=== PATIENT | female | born 1990 | race Caucasian/White ===

== ENCOUNTER 2020-06-26 00:11 | Inpatient (IN) ==
[2020-06-26] MEDS ORDERED: OXYTOCIN 30 UNITS/500 ML BAG IV PRN ×3 (00:59→15:56)
[2020-06-26] MEDS: LACTATED RINGER'S 1,000 ML IV PRN ×4 (01:00→13:56)
[2020-06-26] MEDS ORDERED: diphenhydrAMINE 50 MG/ML VIAL IV PRN (01:02)
[2020-06-26] MEDS ORDERED: NALOXONE HCL 1 MG in SODIUM CHLORIDE 0.9% 1000ML 1,000 ML IV PRN (01:02)
[2020-06-26] MEDS ORDERED: ePHEDrine sulfate 50 MG/ML AMP IV PRN (01:02)
[2020-06-26] MEDS ORDERED: ONDANSETRON INJ 2 MG/ML 2 ML VIAL IV PRN (01:02)
[2020-06-26] MEDS ORDERED: NALOXONE HCL 0.4 MG/1 ML VIAL/CARP IV PRN (01:02)
[2020-06-26] MEDS ORDERED: PROMETHAZINE HCL 25 MG in SODIUM CHLORIDE 0.9% 50 ML IV PRN (01:02)
--- NOTE | 2020-06-26 01:02 | Anesthesiology Consultation ---
Date of Service June 26, 2020 Assessment & Plan ASA ASA2 Proposed Anesthesia Anesthesia Type: Labor Epidural Risk / Benefits Reviewed With: PT / POA / Parent / Guardian, Accepts Plan and Informed Consent Obtained History Height/Weight Height: 5 ft 8 in Weight: 63.503 kg Allergies Allergy/AdvReac Type Severity Reaction Status Date / Time No Known Allergies Allergy Verified 06/13/20 14:00 Medications Home Medications Medication Instructions Recorded Confirmed Last Taken prenat.vits,leighann,ccg-[id number] 1 tab PO DAILY 11/10/19 06/13/20 Unknown Active Medications Generic Name Dose Route Start Last Admin Trade Name Freq PRN Reason Stop Dose Admin Lactated Ringer's 1,000 mls @ 125 mls/hr 06/26/20 00:59 06/26/20 01:00 Lr IV 06/28/20 00:58 125 mls/hr .Q8H PRN Administration L&D Protocol Protocol Ropivacaine 100 ml 06/26/20 01:02 06/26/20 02:00 Fentanyl 2mcg/Ml Ropivacaine 1.25mg/Ml 100 Ml Bag EPI 06/27/20 01:01 100 ml PRN PRN Administration Pain R/T Labor Protocol Exercise / Class Metabolic Activity II 4-5 Yardwork/Stairs/Walk up hill Past Family History Family History Father Colorectal cancer Mother Diabetes Other Dyslipidemia Hypertension Denies family history of Ovarian cancer Prostate cancer Myocardial infarction Breast cancer Past Surgical History Surgical History [place] teeth extracted Past Anesthesia History No Hx of Anesthesia Complications and No Family Hx of Anesthesia Complications History of PONV No Hx of PONV and No Hx of Motion Sickness Social History Smoking Status: Never smoker Hx Alcohol Use: Yes Hx Substance Use: No Review of Systems denies fever/cough/ colds/ chest pain/ SOB/ ROBERTO denies ROBERTO Physical Exam Vital Signs Last Vital Signs Pulse 85 06/26/20 02:05 Resp 18 06/26/20 00:25 BP 112/67 06/26/20 02:05 Pulse Ox 99 06/26/20 01:46 ENMT Mouth: no TMJ abnormality and no dentition abnormality Thyromental Distance: > or= 3.5 Finger Breadths Mallampati Class: II Neck neck extension not limited Respiratory normal respiratory effort; no respiratory distress Auscultation: lungs clear to auscultation bilaterally Cardiovascular Rate/Rhythm: regular rate and regular rhythm Neurologic moves all extremities Psychiatric Orientation: alert and oriented x 3 Testing Laboratory Results 06/26/20 01:40
--- NOTE | 2020-06-26 01:05 | History & Physical Report ---
Date of Service June 26, 2020 Assessment & Plan (1) Encounter for supervision in primigravida, antepartum: Admit to L&D. OK for epidural when she desires. Labs, EFM/toco, IV. Covid swab per protocol. History of Present Illness Chief Complaint: labor Primary Care Provider: NO PCP 30yo @ 39 6/7, spontaneous labor. Ctx started 9pm last night. No ROM, no vaginal bleeding. + movement. Allergies Allergy/AdvReac Type Severity Reaction Status Date / Time No Known Allergies Allergy Verified 06/13/20 14:00 Home Medications Medication Instructions Recorded Confirmed Type prenat.vits,leihgann,man-qees-hvbtp 1 tab PO DAILY 11/10/19 06/13/20 History Patient History Surgical History [place] teeth extracted Family History Father Colorectal cancer Mother Diabetes Other Dyslipidemia Hypertension Denies family history of Ovarian cancer Prostate cancer Myocardial infarction Breast cancer Social History (Updated 11/10/19 @ 13:18 by Michelle Sinha) Smoking Status: Never smoker Second Hand Exposure: No; Hx Alcohol Use: Yes Hx Substance Use: No Preferred Language: Chilean Communication Ability: Effective marital status: marital status details: Josef (30) [phone] Current Living Situation: Spouse Current Living Situation Comment: lives with spouse, 1 dog. 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 Feels Safe at Home: Yes Safety Concerns: Feels Safe At This Time Childhood Exposure to Second-Hand Smoke: No caffeine: No Dental Care, Regularly: Yes Physical Activity Frequency: 3-4 Times per Week Seatbelt Use: always Sunscreen Use: Yes Review of Systems All systems reviewed & are unremarkable except as noted in HPI & below Physical Exam Physical Exam: SVE 3/90/0 FHT Cat 1 [place] Q 2 Constitutional: WD/WN, vitals as above Respiratory: normal respiratory effort, lungs clear to auscultation no respiratory distress Cardiovascular: Rate/Rhythm: regular rate and regular rhythm Gastrointestinal (Abdomen): Inspection/Auscultation: abdomen normal to inspection Percussion/Palpation: abdomen soft; abdomen nontender Gravid. No s/s chorio or abruption. Skin: no rashes, warm and dry Psychiatric: A+Ox3, euthymic affect Results & Data ([facility]) Vital Signs (Past 12 Hours) Vital Signs Pulse Resp BP 06/26/20 00:25 18 06/26/20 00:24 93 H 123/77 Coding Level of Care Code None Diagnoses Encounter for supervision in primigravida, antepartum Z34.00
[2020-06-26] MEDS ORDERED: BUPIVACAINE 0.25% 30 ML VIAL ONE (01:19)
[2020-06-26] MEDS ORDERED: SODIUM CHLORIDE 0.9% INJ 10 ML VIAL ONE (01:19)
[2020-06-26] MEDS ORDERED: fentaNYL citrate 100 MCG/2 ML VIAL ONE (01:19)
[2020-06-26] MEDS ORDERED: ePHEDrine sulfate 50 MG/ML AMP ONE (01:19)
[2020-06-26] MEDS ORDERED: fentaNYL 2MCG/ML ROPIVACAINE 1.25MG/ML 100 ML BAG EPI ONE (01:20)
[2020-06-26 01:53] LABS: Hematocrit (blood only) 38.6 % (37-47); Hemoglobin 13.2 g/dL (12.0-16.0); Mean Corpuscular Hemoglobin 29.7 pg (25-34); Mean Corpuscular Hgb Conc 34.2 g/dL (32-36); Mean Corpuscular Volume 86.7 fL (80-100); Mean Platelet Volume 9.9 fL (7.4-10.4); Platelet Count 187 K/uL (130-400); RDW Standard Deviation 41.7 fL (36.4-46.3); Red Blood Count 4.45 M/uL (4.2-5.4); White Blood Count 11.93 K/uL (4.8-10.8)
[2020-06-26] MEDS: fentaNYL 2MCG/ML ROPIVACAINE 1.25MG/ML 100 ML BAG EPI PRN ×3 (02:00→10:28)
--- NOTE | 2020-06-26 08:12 | Labor Progress Brief Note ---
Date of Service June 26, 2020 Subjective Comfortable with epidural. FHT Cat 1 [place] Q 2-4 min Is willing for pitocin if needed. Continue labor. Assessment & Plan Admission and Anticipated Discharge Date Admission Date: June 26, 2020 Results & Data ([facility]) Vital Signs (Past 12 Hours) Vital Signs Temp Pulse Resp BP Pulse Ox 06/26/20 08:07 94 H 123/77 06/26/20 07:51 96 H 125/67 06/26/20 07:37 93 H 121/72 06/26/20 07:22 87 113/75 06/26/20 07:06 97 H 115/71 06/26/20 07:05 37.1 C 16 06/26/20 06:51 101 H 118/69 06/26/20 06:37 96 H 128/74 06/26/20 06:21 96 H 114/73 06/26/20 06:07 101 H 121/76 06/26/20 05:51 88 125/70 06/26/20 05:38 88 123/69 06/26/20 05:21 89 118/74 06/26/20 05:14 18 06/26/20 05:07 116 H 121/78 06/26/20 04:52 91 H 129/72 06/26/20 04:37 95 H 124/76 06/26/20 04:21 93 H 124/73 06/26/20 04:07 93 H 122/73 06/26/20 03:53 90 121/69 06/26/20 03:38 87 123/75 06/26/20 03:30 37.1 C 18 06/26/20 03:22 90 120/69 06/26/20 03:15 18 06/26/20 03:07 84 125/68 06/26/20 03:00 18 06/26/20 02:52 79 126/67 06/26/20 02:45 18 06/26/20 02:37 90 121/69 06/26/20 02:30 18 06/26/20 02:22 86 127/76 06/26/20 02:15 18 06/26/20 02:05 85 112/67 06/26/20 02:03 86 115/65 06/26/20 02:01 91 H 115/65 06/26/20 02:00 18 06/26/20 01:59 94 H 109/64 06/26/20 01:57 96 H 116/65 06/26/20 01:55 103 H 114/77 06/26/20 01:46 101 H 99 06/26/20 01:45 18 06/26/20 01:25 18 06/26/20 01:20 18 06/26/20 01:15 18 06/26/20 01:10 18 06/26/20 01:05 18 06/26/20 01:00 06/26/20 00:26 37.1 C 06/26/20 00:25 18 06/26/20 00:24 93 H 123/77 Coding Level of Care Code None
--- NOTE | 2020-06-26 08:54 | Labor Progress Brief Note ---
Date of Service June 26, 2020 Subjective comfortable Assessment & Plan (1) Normal labor: Admission and Anticipated Discharge Date Admission Date: June 26, 2020 plan to augment with arom and pit as needed. fetus category one. anticipate . Physical Exam Constitutional: WD/WN, vitals as above Psychiatric: A+Ox3, euthymic affect Genitourinary: /-2 toco--q2-5min efm--130s with mod variability, accels to 150s, no decels arom--clear Results & Data ([facility]) Vital Signs (Past 12 Hours) Vital Signs Temp Pulse Resp BP Pulse Ox 06/26/20 08:51 114/73 06/26/20 08:46 36.6 C 16 06/26/20 08:36 82 114/66 06/26/20 08:21 81 114/64 06/26/20 08:07 94 H 123/77 06/26/20 07:51 96 H 125/67 06/26/20 07:37 93 H 121/72 06/26/20 07:22 87 113/75 06/26/20 07:06 97 H 115/71 06/26/20 07:05 37.1 C 16 06/26/20 06:51 101 H 118/69 06/26/20 06:37 96 H 128/74 06/26/20 06:21 96 H 114/73 06/26/20 06:07 101 H 121/76 06/26/20 05:51 88 125/70 06/26/20 05:38 88 123/69 06/26/20 05:21 89 118/74 06/26/20 05:14 18 06/26/20 05:07 116 H 121/78 06/26/20 04:52 91 H 129/72 06/26/20 04:37 95 H 124/76 06/26/20 04:21 93 H 124/73 06/26/20 04:07 93 H 122/73 06/26/20 03:53 90 121/69 06/26/20 03:38 87 123/75 06/26/20 03:30 37.1 C 18 06/26/20 03:22 90 120/69 06/26/20 03:15 18 06/26/20 03:07 84 125/68 06/26/20 03:00 18 06/26/20 02:52 79 126/67 06/26/20 02:45 18 06/26/20 02:37 90 121/69 06/26/20 02:30 18 06/26/20 02:22 86 127/76 06/26/20 02:15 18 06/26/20 02:05 85 112/67 06/26/20 02:03 86 115/65 06/26/20 02:01 91 H 115/65 06/26/20 02:00 18 06/26/20 01:59 94 H 109/64 06/26/20 01:57 96 H 116/65 06/26/20 01:55 103 H 114/77 06/26/20 01:46 101 H 99 06/26/20 01:45 18 06/26/20 01:25 18 06/26/20 01:20 18 06/26/20 01:15 18 06/26/20 01:10 18 06/26/20 01:05 18 06/26/20 01:00 06/26/20 00:26 37.1 C 06/26/20 00:25 18 06/26/20 00:24 93 H 123/77 Coding Level of Care Code None Diagnoses Normal labor O80; Z37.9
--- NOTE | 2020-06-26 10:55 | Labor Progress Brief Note ---
Date of Service June 26, 2020 Subjective patient got very painful and had to increase settings on epidural. then had episode of tachysystole and had a resultant FHR deceleration to the 70-80. This was resolved with pit off, turning patient, oxygen on. FHT prior had been 120s with mod varibility, early decels with some contractions. Lasted for about 5 minute. cx 7/100/-1. Terb at bedside in case. Fetus has recovered. Will hold pit for now. More comfortable after epidural changes. Will continue to watch closely. Baseline now 120 Assessment & Plan Admission and Anticipated Discharge Date Admission Date: June 26, 2020 Results & Data ([facility]) Vital Signs (Past 12 Hours) Vital Signs Temp Pulse Resp BP Pulse Ox 06/26/20 10:36 69 06/26/20 10:22 74 118/62 06/26/20 10:06 77 118/67 06/26/20 10:00 16 06/26/20 09:53 81 131/69 06/26/20 09:36 93 H 126/74 06/26/20 09:30 20 06/26/20 09:23 89 130/72 06/26/20 09:06 83 111/69 06/26/20 09:00 16 06/26/20 08:51 84 114/73 06/26/20 08:46 36.6 C 16 06/26/20 08:36 82 114/66 06/26/20 08:30 16 06/26/20 08:21 81 114/64 06/26/20 08:07 94 H 123/77 06/26/20 08:00 18 06/26/20 07:51 96 H 125/67 06/26/20 07:37 93 H 121/72 06/26/20 07:30 16 06/26/20 07:22 87 113/75 06/26/20 07:06 97 H 115/71 06/26/20 07:05 37.1 C 16 06/26/20 06:51 101 H 118/69 06/26/20 06:37 96 H 128/74 06/26/20 06:21 96 H 114/73 06/26/20 06:07 101 H 121/76 06/26/20 05:51 88 125/70 06/26/20 05:38 88 123/69 06/26/20 05:21 89 118/74 06/26/20 05:14 18 06/26/20 05:07 116 H 121/78 06/26/20 04:52 91 H 129/72 06/26/20 04:37 95 H 124/76 06/26/20 04:21 93 H 124/73 06/26/20 04:07 93 H 122/73 06/26/20 03:53 90 121/69 06/26/20 03:38 87 123/75 06/26/20 03:30 37.1 C 18 06/26/20 03:22 90 120/69 06/26/20 03:15 18 06/26/20 03:07 84 125/68 06/26/20 03:00 18 06/26/20 02:52 79 126/67 06/26/20 02:45 18 06/26/20 02:37 90 121/69 06/26/20 02:30 18 06/26/20 02:22 86 127/76 06/26/20 02:15 18 06/26/20 02:05 85 112/67 06/26/20 02:03 86 115/65 06/26/20 02:01 91 H 115/65 06/26/20 02:00 18 06/26/20 01:59 94 H 109/64 06/26/20 01:57 96 H 116/65 06/26/20 01:55 103 H 114/77 06/26/20 01:46 101 H 99 06/26/20 01:45 18 06/26/20 01:25 18 06/26/20 01:20 18 06/26/20 01:15 18 06/26/20 01:10 18 06/26/20 01:05 18 06/26/20 01:00 18 06/26/20 00:26 37.1 C 06/26/20 00:25 18 06/26/20 00:24 93 H 123/77 Coding Level of Care Code None
[2020-06-26] MEDS ORDERED: NURSING L&D Epidural Breakthrough Pain Update ONE (10:58)
--- NOTE | 2020-06-26 11:54 | Labor Progress Brief Note ---
Date of Service June 26, 2020 Subjective comfortable Assessment & Plan (1) Normal labor: Admission and Anticipated Discharge Date Admission Date: June 26, 2020 continue current management. Fetus reassuring. anticipate . Physical Exam Constitutional: WD/WN, vitals as above Psychiatric: A+Ox3, euthymic affect Genitourinary: cx--9/100/0 toco--q2-4min efm--120s with mod variability, occasional early, +scalp stim Results & Data ([facility]) Vital Signs (Past 12 Hours) Vital Signs Temp Pulse Resp BP Pulse Ox 06/26/20 11:37 75 120/72 06/26/20 11:30 16 06/26/20 11:22 74 136/82 06/26/20 11:08 62 123/78 06/26/20 11:02 36.9 C 16 06/26/20 11:00 20 06/26/20 10:52 66 135/87 06/26/20 10:36 69 06/26/20 10:30 18 06/26/20 10:22 74 118/62 06/26/20 10:06 77 118/67 06/26/20 10:00 16 06/26/20 09:53 81 131/69 06/26/20 09:36 93 H 126/74 06/26/20 09:30 20 06/26/20 09:23 89 130/72 06/26/20 09:06 83 111/69 06/26/20 09:00 16 06/26/20 08:51 84 114/73 06/26/20 08:46 36.6 C 16 06/26/20 08:36 82 114/66 06/26/20 08:30 16 06/26/20 08:21 81 114/64 06/26/20 08:07 94 H 123/77 06/26/20 08:00 18 06/26/20 07:51 96 H 125/67 06/26/20 07:37 93 H 121/72 06/26/20 07:30 16 06/26/20 07:22 87 113/75 06/26/20 07:06 97 H 115/71 06/26/20 07:05 37.1 C 16 06/26/20 06:51 101 H 118/69 06/26/20 06:37 96 H 128/74 06/26/20 06:21 96 H 114/73 06/26/20 06:07 101 H 121/76 06/26/20 05:51 88 125/70 06/26/20 05:38 88 123/69 06/26/20 05:21 89 118/74 06/26/20 05:14 18 06/26/20 05:07 116 H 121/78 06/26/20 04:52 91 H 129/72 06/26/20 04:37 95 H 124/76 06/26/20 04:21 93 H 124/73 06/26/20 04:07 93 H 122/73 06/26/20 03:53 90 121/69 06/26/20 03:38 87 123/75 06/26/20 03:30 37.1 C 18 06/26/20 03:22 90 120/69 06/26/20 03:15 18 06/26/20 03:07 84 125/68 06/26/20 03:00 18 06/26/20 02:52 79 126/67 06/26/20 02:45 18 06/26/20 02:37 90 121/69 06/26/20 02:30 18 06/26/20 02:22 86 127/76 06/26/20 02:15 18 06/26/20 02:05 85 112/67 06/26/20 02:03 86 115/65 06/26/20 02:01 91 H 115/65 06/26/20 02:00 18 06/26/20 01:59 94 H 109/64 06/26/20 01:57 96 H 116/65 06/26/20 01:55 103 H 114/77 06/26/20 01:46 101 H 99 06/26/20 01:45 18 06/26/20 01:25 18 06/26/20 01:20 18 06/26/20 01:15 18 06/26/20 01:10 18 06/26/20 01:05 18 06/26/20 01:00 18 06/26/20 00:26 37.1 C 06/26/20 00:25 18 06/26/20 00:24 93 H 123/77 Coding Level of Care Code None Diagnoses Normal labor O80; Z37.9
[2020-06-26] MEDS ORDERED: OXYTOCIN 10 UNITS/ML VIAL ONE (14:34)
[2020-06-26] MEDS ORDERED: oxyCODONE/ACETAMINOPHEN 5mg/325mg TAB PO PRN (15:53)
[2020-06-26] MEDS ORDERED: ACETAMINOPHEN 325 MG TAB PO PRN (15:53)
--- NOTE | 2020-06-26 15:55 | Anesthesia Procedure Note ---
Date of Service June 26, 2020 Anesthesia Post Epidural Note Vital Signs Vital Signs: Temp Pulse Resp BP Pulse Ox 36.4 C L 65 16 109/62 100 06/26/20 15:04 06/26/20 15:50 06/26/20 14:00 06/26/20 15:50 06/26/20 14:43 Pain Intensity Bilateral Abdomen: Pain Intensity: 7 Notes Mental Status: alert / awake / arousable and participated in evaluation Nausea / Vomiting: adequately controlled Pain: adequately controlled Airway Patency, RR, SpO2: stable & adequate BP & HR: stable & adequate Hydration State: stable & adequate Neuraxial Anesthesia: was administered and sensory block is resolving Anesthetic Complications: no major complications apparent Epidural: Removed without complications and With tip intact
[2020-06-26] MEDS ORDERED: BENZOCAINE 20% AER SPR 82.5 GM CAN EXT PRN (15:56)
[2020-06-26] MEDS ORDERED: DIPHTHERIA/TETANUS/PERTUSSIS 0.5 ML SYR/VIAL IM ONE (15:56)
[2020-06-26] MEDS ORDERED: SUPERCREAM 0.870% 15 GM JAR EXT PRN (15:56)
[2020-06-26] MEDS ORDERED: HYDROCORTISONE ACETATE 25 MG SUPP PR PRN (15:56)
[2020-06-26] MEDS ORDERED: bisacodyL 10 MG SUPP PR PRN (15:56)
--- NOTE | 2020-06-26 15:56 | Delivery Summary ---
Vaginal Delivery Summary Date of Service June 26, 2020 Pre-operative Diagnosis: at39 6/7 weeks active labor Post-operative Diagnosis: same Procedure: epidural arom pitocin augmentation second degree laceration and repair EBL: 400cc Anesthesia: epidural Procedure: The patient pushed to deliver a viable male infant in omi position. The nose and mouth were bulb suctioned on the perineum and the rest of the infant was then delivered without difficulty. The baby was vigorous. The nose and mouth were again bulb suctioned and the infant was placed in the maternal abdomen for drying and attention. Cord was clamped and cut at one minute of life. Cord blood and segment obtained. Placenta delivered spontaneous, intact with a three vessel cord. Cervix/sulci/rectum were intact. A second degree perineal laceration was repaired in the normal standard fashion. Hemostasis obtained with dilute pitocin, IM pitocin and fundal massage. Apgars were 8/9. Mother and baby doing well at the end of the delivery. Vaginal Delivery Summary and 2nd Degree LAC [facility] [place] Vaginal Delivery Charge Delivery Type Details: and 2nd Degree LAC
[2020-06-26] MEDS: IBUPROFEN 600 MG TAB PO PRN ×2 (17:36→21:06)
[2020-06-26] MEDS: DOCUSATE SODIUM 100 MG CAP PO SCH (21:06)
[2020-06-27] MEDS: IBUPROFEN 600 MG TAB PO PRN ×4 (01:12→21:39)
[2020-06-27 06:27] LABS: Hematocrit (blood only) 30.5 % (37-47); Hemoglobin 10.2 g/dL (12.0-16.0)
--- NOTE | 2020-06-27 06:43 | Obstetrical Progress Note ---
Date of Service <Jesse Amaya MD - Last Filed: 06/27/20 07:31> June 27, 2020 Assessment & Plan <Jesse Amaya MD - Last Filed: 06/27/20 07:31> (1) state: 30 y/o 39w6d who is s/p on 06/26, PPD1. No complications. O pos. RI. - Meeting PP milestones - , ambulating, eating, voiding - Pain controlled - tentative dispo home today. will review d/c instructions. 6 wk f/u Subjective <Jesse Amaya MD - Last Filed: 06/27/20 07:31> Ambulation: ambulating normally Voiding: no voiding problems Passing Gas:: Yes Diet Tolerance:: regular diet Lochia:: Moderate Feeding Type:: breast feeding Current Pain Level(1-10): 2 Doing well. Patient prefers home today. Review of Systems Denies fever, chills, sweats Denies shortness of breath, chest pain, palpitations. Denies breast pain. Denies dysuria. Denies headache or changes in vision. Denies nausea/vomiting. Denies numbness, tingling, weakness. Denies calf pain. Mood is ok. Physical Exam <Jesse Amaya MD - Last Filed: 06/27/20 07:31> General: Alert, oriented. No acute distress. Cardiac: Regular rate and rhythm, no murmurs/rubs/gallops. Respiratory: Clear to auscultation bilaterally, no wheezes/rales/rhonchi. No respiratory distress. Abdomen: , soft, nontender. Uterus: Uterine fundus firm, 0.5cm below umbilicus. Lower Extremities: No lower extremity edema or swelling. No deep calf pain. Norman's negative bilaterally. Results & Data ([facility]) <Jesse Amaya MD - Last Filed: 06/27/20 07:31> Vital Signs (Past 12 Hours) Vital Signs Temp Pulse Resp BP Pulse Ox 06/27/20 03:20 36.6 C 87 18 113/78 06/26/20 23:45 36.6 C 90 18 103/68 98 06/26/20 19:35 36.7 C 83 16 107/73 Medications Administered <Mirta Patel MD, FACOG - Last Filed: 06/27/20 07:46> Co-Signing Physician Notes Resident Physician Supervision Note: I interviewed and examined the patient. Discussed with Dr. Amaya and agree with findings and plan as documented in the note. Any exceptions or clarifications are listed here: Doing well. PPD #1 routine. Given she is a primip and first baby, recommend staying until tomorrow just to make sure all is going well. She is agreeable. Plan d/c in am. Documented By: Mirta Patel MD, FACOG
[2020-06-27] MEDS: PRENATAL VITAMIN 1 TAB PO SCH (08:59)
[2020-06-27] MEDS: DOCUSATE SODIUM 100 MG CAP PO SCH ×2 (08:59→20:31)
[2020-06-27] MEDS ORDERED: bisacodyL 5 MG TABEC PO SCH (20:00)
--- NOTE | 2020-06-28 06:08 | Obstetrical Progress Note ---
Date of Service <Jesse Amaya MD - Last Filed: 06/28/20 07:18> June 28, 2020 Assessment & Plan <Jesse Amaya MD - Last Filed: 06/28/20 07:18> (1) state: 30 y/o 39w6d who is s/p on 06/26, PPD2. No complications. O pos. RI. - Meeting PP milestones - , ambulating, eating, voiding - Pain controlled - dispo home today, reviewed d/c instructions - 6 wk f/u Subjective <Jesse Amaya MD - Last Filed: 06/28/20 07:18> Ambulation: ambulating normally Voiding: no voiding problems Passing Gas:: Yes Diet Tolerance:: regular diet Lochia:: Small Feeding Type:: breast feeding Current Pain Level(1-10): 2 Feeling well. No complaints. Feels ready for home. Review of Systems Denies fever, chills, sweats Denies shortness of breath, chest pain, palpitations. Denies breast pain. Denies dysuria. Denies headache or changes in vision. Denies nausea/vomiting. Denies numbness, tingling, weakness. Denies calf pain. Mood is good. Physical Exam <Jesse Amaya MD - Last Filed: 06/28/20 07:18> General: Alert, oriented. No acute distress. Cardiac: Regular rate and rhythm, no murmurs/rubs/gallops. Respiratory: Clear to auscultation bilaterally, no wheezes/rales/rhonchi. No respiratory distress. Abdomen: , soft Uterus: Uterine fundus firm, 2cm below umbilicus. Lower Extremities: No lower extremity edema or swelling. No deep calf pain. Norman's negative bilaterally. Results & Data ([facility]) <Jesse Amaya MD - Last Filed: 06/28/20 07:18> Vital Signs (Past 12 Hours) Vital Signs Temp Pulse Resp BP Pulse Ox 06/27/20 23:35 37.2 C 68 16 100/66 97 06/27/20 20:20 36.8 C 76 16 100/65 98 Medications Administered <Estrella Mahoney MD, FACOG - Last Filed: 06/28/20 07:19> Co-Signing Physician Notes Resident Physician Supervision Note: I interviewed and examined the patient. Discussed with Dr. Amaya and agree with findings and plan as documented in the note. Any exceptions or clarifications are listed here: pt doing well, ready to go home. instructions reviewed. f/u 6wks. Documented By: Estrella Mahoney MD, FACOG Resident Activity Tracking <Jesse Amaya MD - Last Filed: 06/28/20 07:18> Resident Involvement: Resident Care Provided Care Provided: OB Delivery
[2020-06-28] MEDS: IBUPROFEN 600 MG TAB PO PRN (06:44)
[2020-06-28] MEDS: PRENATAL VITAMIN 1 TAB PO SCH (08:11)
[2020-06-28] MEDS: DOCUSATE SODIUM 100 MG CAP PO SCH (08:11)
== END 2020-06-28 11:00 | disposition home or self-care (01) | DRG 807 ==
LOC: OPB 00:11 → 4S1 00:19 → 4S2 18:26

== ENCOUNTER 2023-09-29 21:33 | Inpatient (IN) ==
[2023-09-30] MEDS ORDERED: LIDOCAINE 1% LOCAL 20 ML VIAL INFIL PRN (00:27)
[2023-09-30] MEDS ORDERED: Patient's ALLERGY Info needs ENTERED STA (00:30)
[2023-09-30] MEDS: LACTATED RINGER'S 1,000 ML IV PRN (00:45)
[2023-09-30 01:03] LABS: Hemoglobin 12.3 g/dl (12.0-16.0); Mean Corpuscular Hemoglobin 27.8 pg (25.0-34.0); Mean Corpuscular Hgb Conc 33.2 g/dL (32.0-36.0); Mean Corpuscular Volume 83.5 fL (80.0-100.0); Mean Platelet Volume 10.7 fL (9.4-12.4); Platelet Count 168 K/uL (130-400); RDW Coefficient of Variation 13.2 % (11.5-14.5); RDW Standard Deviation 40.2 fL (36.4-46.3); Red Blood Count 4.43 M/uL (4.20-5.40); White Blood Count 11.05 K/ul (4.8-10.8)
[2023-09-30] MEDS: BUPIVACAINE 0.25% PF 30 ML VIAL ONE (01:30)
[2023-09-30] MEDS: fentANYL 2 MCG/ML BUPIVacaine 0.125%-NSS 100ML BAG ONE (01:30)
[2023-09-30] MEDS: LIDOCAINE 2%/EPINEPHRINE 1:200,000 20 ML PF ONE (01:30)
[2023-09-30] MEDS ORDERED: diphenhydrAMINE 50 MG/ML VIAL IV PRN (01:42)
[2023-09-30] MEDS ORDERED: NALBUPHINE HCL 5 MG in SYRINGE 0 ML IV PRN (01:42)
[2023-09-30] MEDS ORDERED: ePHEDrine sulfate 50 MG/ML AMP IV PRN (01:42)
[2023-09-30] MEDS ORDERED: SODIUM CHLORIDE 0.9% PF INJ 10 ML VIAL EPI PRN (01:42)
[2023-09-30] MEDS ORDERED: fentaNYL citrate PF 100 MCG/2 ML VIAL EPI PRN (01:42)
[2023-09-30] MEDS ORDERED: fentANYL 2 MCG/ML BUPIVacaine 0.125%-NSS 100ML BAG EPI PRN (01:42)
[2023-09-30] MEDS ORDERED: LIDOCAINE 2% MPF LOCAL 5 ML VIAL EPI PRN (01:42)
[2023-09-30] MEDS ORDERED: NALOXONE HCL 1 MG in SODIUM CHLORIDE 0.9% 1,000 ML IV PRN (01:42)
[2023-09-30] MEDS ORDERED: BUPIVACAINE 0.25% PF 30 ML VIAL EPI PRN (01:42)
[2023-09-30] MEDS ORDERED: NALOXONE HCL 0.4 MG/1 ML VIAL/CARP IV PRN (01:42)
[2023-09-30] MEDS ORDERED: ROPIVACAINE 0.5% PF 5 MG/ML 20 ML VIAL EPI PRN (01:42)
--- NOTE | 2023-09-30 01:44 | Anesthesiology Consultation ---
Date of Service September 30, 2023 Assessment & Plan Chart Review Chart Review: Acceptable Risk for Surgery Consults Requested none History Height/Weight Height: 5 ft 7 in Weight: 63.503 kg Allergies Allergy/AdvReac Type Severity Reaction Status Date / Time No Known Allergies Allergy Unverified 09/30/23 01:33 Social History Smoking Status: Never smoker Hx Alcohol Use: No Hx Substance Use: No Physical Exam Vital Signs Last Vital Signs Temp 36.5 C 09/29/23 21:50 Pulse 87 09/30/23 01:41 Resp 18 09/29/23 21:50 BP 140/73 09/30/23 01:41 Pulse Ox 100 09/30/23 01:41 Testing Laboratory Results 09/30/23 00:35
[2023-09-30] MEDS ORDERED: OXYTOCIN 30 UNITS/NSS 30 UNITS/500 ML BAG IV PRN (01:45)
[2023-09-30] MEDS: fentaNYL citrate PF 100 MCG/2 ML VIAL ONE (03:17)
[2023-09-30] MEDS: SODIUM CHLORIDE 0.9% PF INJ 10 ML VIAL ONE (03:17)
[2023-09-30] MEDS: ePHEDrine sulfate 50 MG/ML AMP ONE (03:17)
[2023-09-30] MEDS: BUPIVACAINE 0.25% PF 30 ML VIAL EPI STA (03:17)
[2023-09-30] MEDS: fentaNYL citrate PF 100 MCG/2 ML VIAL EPI STA (03:17)
[2023-09-30] MEDS: LIDOCAINE 2%/EPINEPHRINE 1:200,000 20 ML PF EPI STA (03:18)
[2023-09-30] MEDS: SODIUM CHLORIDE 0.9% PF INJ 10 ML VIAL EPI STA (03:18)
[2023-09-30] MEDS: OXYTOCIN 30 UNITS/NSS 30 UNITS/500 ML BAG IV PRN (06:49)
--- NOTE | 2023-09-30 06:56 | Delivery Summary ---
Vaginal Delivery Summary Date of Service September 30, 2023 Vaginal Delivery Summary DIAGNOSES: 1. [place] intrauterine at 39w6d gestation. 2. Spontaneous onset of labor. 3. Group B Streptococcus Neg. PROCEDURE: Spontaneous vaginal delivery and repair of 2nd degree laceration. SURGEON: Thamina Weller MD. ADMINISTRATOR: None. QUANTITATIVE BLOOD LOSS: 202 mL. COMPLICATIONS: None. PLACENTA: Spontaneous and intact with a 3-vessel cord. DISPOSITION: Stable to labor and delivery. DESCRIPTION: The patient pushed well and brought the head to in DOA position. The infant's head was allowed to deliver with contraction force and no further active pushing, with the perineum protected during this time. There was 1 loop of nuchal cord. The shoulders and body delivered without any difficulty, and the infant was placed on the maternal abdomen. It was vigorous and moving all extremities, and making respiratory efforts. The cord was doubly clamped by the MD and then cut by the FOB. The placenta delivered spontaneously and was noted to be intact and with a 3VC. The cervix, vagina and perineum were examined and were found to have a second degree laceration which was repaired in the usual manner using vicryl suture. The fundus was firm and lochia minimal immediately after delivery. [facility] Vaginal Delivery Charge Vaginal Delivery Codes: 18987 global code for the antepartum, delivery, and post-
[2023-09-30] MEDS ORDERED: oxyCODONE/ACETAMINOPHEN 5mg/325mg TAB PO PRN (07:05)
[2023-09-30] MEDS ORDERED: HYDROCORTISONE ACETATE 25 MG SUPP PR PRN (07:05)
[2023-09-30] MEDS ORDERED: bisacodyL 10 MG SUPP PR PRN (07:05)
[2023-09-30] MEDS: DIPHTHER/TETAN/PERTUS Vaccine (Tdap, Adol/Adult) 0.5mL IM ONE (07:19)
--- NOTE | 2023-09-30 07:34 | Anesthesia Procedure Note ---
Date of Service September 30, 2023 Anesthesia Post Epidural Note Vital Signs Vital Signs: Temp Pulse Resp BP Pulse Ox 36.8 C 54 L 18 151/83 H 98 09/30/23 04:30 09/30/23 07:31 09/30/23 06:55 09/30/23 07:24 09/30/23 07:31 Notes Mental Status: alert / awake / arousable Nausea / Vomiting: adequately controlled Pain: adequately controlled Airway Patency, RR, SpO2: stable & adequate BP & HR: stable & adequate Hydration State: stable & adequate Neuraxial Anesthesia: was administered and sensory block is resolving Anesthetic Complications: no major complications apparent and Pt Satisfied with anesthetic care Epidural: Removed without complications and With tip intact
[2023-09-30] MEDS: BENZOCAINE 20% SPRY 85 APPLN/85 GM CAN EXT PRN (08:25)
[2023-09-30] MEDS: PRENATAL VITAMIN 1 TAB PO SCH (08:26)
[2023-09-30] MEDS: DOCUSATE SODIUM 100 MG CAP PO SCH (08:26)
[2023-09-30] MEDS: ACETAMINOPHEN 325 MG TAB PO PRN (12:53)
[2023-09-30] MEDS: IBUPROFEN 600 MG TAB PO PRN (18:19)
[2023-10-01 00:15] VITALS: RESP 16
--- NOTE | 2023-10-01 06:37 | Obstetrical Progress Note ---
Date of Service October 01, 2023 Assessment & Plan (1) care and examination: Plan PPD1: Stable, continue routine care, continue OOB and ambulation, diet as tolerated Ready for d/c today Rh+, gbs neg, ri Admission and Anticipated Discharge Date Admission Date: September 30, 2023 Supervising Physician Co-Signing Physician Notes Resident Physician Supervision Note: I was present with Dr. Musa during the history and exam. I discussed the case with the resident and agree with the findings and plan as documented in the note. Any exceptions or clarifications are listed here: stable doing well, eating voiding, ambulating, no bleeding or pain concerns. , ri, rh pos. af vss, abd soft ff 2 down nt, ext nt calves. ppd#1 s/p , ready to go home, instructions given and reviewed. f/u 6 wk pp check. Documented By: Estrella Mahoney MD, FACOG Subjective Orion is a 33yo who is PPD#1 following at term. She reports her pain is well-controlled w ibuprofen She is eating, drinking, ambulating, and urinating Having appropriate lochia Currently breast feeding. Review of Systems Constitutional: no fever, no chills and no sweats Respiratory: no dyspnea Cardiovascular: no chest pain, no palpitations and no calf pain Genitourinary: no dysuria Neurologic: no headache(s) Physical Exam Physical Exam: General: Alert, oriented. No acute distress. Cardiac: Regular rate and rhythm, no murmurs, rubs, or gallops. Respiratory: Clear to auscultation bilaterally, no wheezes/rales/rhonchi. No increased work of breathing. Symmetrical chest rise. No respiratory distress. Abdomen: Soft, nontender, nondistended. Bowel sounds present. Uterus: Uterine fundus firm, palpable 2 cm below the umbilicus. Lower extremities: No lower extremity edema or swelling. No deep calf pain. Results & Data Vital Signs (Past 12 Hours) Vital Signs Temp Pulse Resp BP Pulse Ox O2 Del Method 10/01/23 03:00 37.0 C 70 16 108/72 96 Room Air 09/30/23 23:40 37.0 C 74 16 128/84 97 Room Air 09/30/23 19:10 36.7 C 80 18 119/74 100 Room Air Resident Activity Tracking Resident Involvement: Resident Care Provided Care Provided: Adult [facility]
[2023-10-01 07:33] LABS: Hematocrit (blood only) 35.4 % (37.0-47.0); Hemoglobin 11.7 g/dl (12.0-16.0); Mean Corpuscular Hemoglobin 28.3 pg (25.0-34.0); Mean Corpuscular Hgb Conc 33.1 g/dL (32.0-36.0); Mean Corpuscular Volume 85.5 fL (80.0-100.0); Mean Platelet Volume 9.9 fL (9.4-12.4); Platelet Count 153 K/uL (130-400); RDW Coefficient of Variation 13.6 % (11.5-14.5); Red Blood Count 4.14 M/uL (4.20-5.40); White Blood Count 10.33 K/ul (4.8-10.8)
[2023-10-01 07:43] VITALS: PULSE 71; TEMP 98.4; O2SAT 95
[2023-10-01 08:31] VITALS: BP 108/72
[2023-10-01] MEDS ORDERED: bisacodyL 5 MG TABEC PO SCH (20:00)
== END 2023-10-01 10:35 | disposition home or self-care (01) | DRG 807 ==
LOC: EDBD → OPB 21:33 → 4S1 21:35 → MERGE 09-30 01:23 → 4E2 09-30 09:10